=== PATIENT | female | born 1960 | race Caucasian/White ===

== ENCOUNTER 2022-02-05 21:37 | Emergency (ER) | payer BC, OTHER ==
[2022-02-05] MEDS ORDERED: Bacitracin Oint 1 GM U/D Packet TOP ONE (21:39)
[2022-02-05] MEDS ORDERED: Lidocaine 1% 5 ML VIAL INJECT ONE (21:39)
[2022-02-05] MEDS ORDERED: Diphtheria,Pertussis(Acell),Tetanus Vaccine 0.5 ML Syringe IM ONE (22:02)
== END 2022-02-05 22:40 | disposition home or self-care (01) ==
LOC: JP.ED 21:37
DX: S61.312A Laceration without foreign body of right middle finger with damage to nail, initial encounter (principal); Z23 Encounter for immunization; W26.8XXA Contact with other sharp object(s), not elsewhere classified, initial encounter
CPT/HCPCS: 12001; 90471; 90715; 99281; 99282-25